=== PATIENT | male | born 1985 | race Caucasian/White ===

== ENCOUNTER 2019-08-20 11:28 | Emergency (ER) | payer BC ==
--- NOTE | 2019-08-20 11:32 | EDM.PDOC ---
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 He admits he was "stressing out" and anxious about the viral pandemic when this occurred just minutes prior to arriving at the ER. Now here in the ER he is feeling back to normal. Pt was seen in clinic about 1 or 2 weeks ago and diagnosed with bronchitis. He has been using an Albuterol inhaler once or twice a day but it doesn't help. He denies cough, wheezing, syncope, dizziness, fever, chills, chest pain, abdominal pain, nausea, diarrhea, or sore throat. He denies recent travel, or any exposures to confirmed or suspected Covid-19 cases. 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 [employer]OR [employer]ION: Reports: Breathing Treatments - Related Data Allergies Allergy/AdvReac Type Severity Reaction Status Date / Time No Known Allergies Allergy Verified 08/20/19 11:35 Home Meds: Home Meds Albuterol Sulfate [Proair Hfa] 1 puff INH Q4H PRN MDD breathing 08/20/19 [ History] Past Medical History - Past Health History Medical/Surgical History: Denies Medical/Surgical History Social & Family History - Family History Family Medical History: Noncontributory - Tobacco Use Smoking Status *Q: Never Smoker - Living Situation & Occupation Living situation: Reports: with Family Occupation: Employed ED ROS GENERAL - Review of Systems Review Of Systems: Comprehensive ROS is negative, except as noted in HPI. ED EXAM, GENERAL - Physical Exam Exam: See Below Exam Limited By: No Limitations General Appearance: Alert, WD/WN, No Apparent Distress, Anxious Eye Exam: Bilateral Eye: Normal Inspection Nose: Normal Inspection Throat/Mouth: Normal Inspection, Normal Lips, Normal Teeth, Normal Gums, Normal Oropharynx, Normal Voice, No Airway Compromise Head: Atraumatic, Normocephalic Neck: Normal Inspection, Supple, Non-Tender, Full Range of Motion Respiratory/Chest: No Respiratory Distress, Lungs Clear, Normal Breath Sounds, No Accessory Muscle Use, Chest Non-Tender Cardiovascular: Normal Peripheral Pulses, Regular Rate, Rhythm, No Edema, No Gallop, No JVD, No Murmur, No Rub Neurological: Alert, Oriented, Normal Cognition Psychiatric: Anxious Skin Exam: Warm, Dry, Intact, Normal Color, No Rash Course - Vital Signs Last Recorded V/S: Last Vital Signs Temp 98.4 F 08/20/19 11:37 Pulse 65 08/20/19 11:37 Resp 18 08/20/19 11:37 BP 167/96 H 08/20/19 11:37 Pulse Ox 20 L 08/20/19 11:37 Departure - Departure Time of Disposition: 11:43 Disposition: Home, Self-Care 01 Condition: Good Clinical Impression: Hyperventilation Acute bronchitis Qualifiers: Bronchitis organism: unspecified organism Qualified Code(s): J20.9 - Acute bronchitis, unspecified - Discharge Information *PRESCRIPTION DRUG MONITORING PROGRAM REVIEWED*: Not Applicable *COPY OF PRESCRIPTION DRUG MONITORING REPORT IN PATIENT RACHEL: Not Applicable Instructions: Hyperventilation, Acute Bronchitis, Adult Forms: ED Department Discharge Additional Instructions: Albuterol Inhaler: 2 puffs every 4 hours while awake for shortness of breath or wheezing. Relax and slow your breathing if you feel short of breath or tingling in your hands or face, or lightheadedness. Follow up in clinic next week if not completely improved. Sepsis Event Note - Focused Exam Vital Signs: Vital Signs Temp Pulse Resp BP Pulse Ox 08/20/19 11:37 98.4 F 65 18 167/96 H 20 L Date Exam was Performed: 08/20/19 Time Exam was Performed: 11:45
== END 2019-08-20 11:46 | disposition home or self-care (01) ==
LOC: DL.ED 11:28
DX: J20.9 Acute bronchitis, unspecified (principal); R06.4 Hyperventilation
CPT/HCPCS: 99284